=== PATIENT | female | born 2000 | race Caucasian/White ===

== ENCOUNTER 2018-08-20 16:54 | Emergency (ER) | payer OTHER ==
[2018-08-20 17:18] VITALS: BP 135/73
--- NOTE | 2018-08-20 17:19 | UC ---
Skin Complaint HPI - HPI Summary HPI Summary: 2 small circular rash on left arm for past 2 days, denies itching/pain. - History of Current Complaint Chief Complaint: UCSkin Stated Complaint: L ARM SKIN CONCERN Hx Obtained From: Patient Hx Last Menstrual Period: 07/22/18 Onset/Duration: Gradual Onset, Lasting Days Timing: Constant Pain Intensity: 0 - Allergy/Home Medications Allergies/Adverse Reactions: Allergies Allergy/AdvReac Type Severity Reaction Status Date / Time No Known Allergies Allergy Verified 08/20/18 17:18 PMH/Surg Hx/FS Hx/Imm Hx Previously Healthy: Yes - Surgical History Surgical History: Yes Surgery Procedure, Year, and Place: jaw surgery - Family History Known Family History: Positive: Hypertension - Social History Alcohol Use: None Substance Use Type: None Smoking Status (MU): Never Smoked Tobacco Review of Systems All Other Systems Reviewed And Are Negative: Yes Skin: Positive: Rash Is Patient Immunocompromised?: No Physical Exam Triage Information Reviewed: Yes Appearance: Well-Appearing, No Pain Distress, Well-Nourished Vital Signs: Initial Vital Signs Temp 98.9 F 08/20/18 17:16 Pulse 87 08/20/18 17:16 Resp 16 08/20/18 17:16 BP 135/73 08/20/18 17:16 Pulse Ox 100 08/20/18 17:16 Vital Signs Reviewed: Yes Eye Exam: Normal ENT Exam: Normal Dental Exam: Normal Respiratory Exam: Normal Cardiovascular Exam: Normal Abdominal Exam: Normal Bowel Sounds: Positive: Present Musculoskeletal Exam: Normal Neurological Exam: Normal Psychological Exam: Normal Skin: Positive: Rashes - 2 round areas of erythema with scaling Course/Dx - Course Course Of Treatment: hx obtained, exam performed ,meds reviewed, - Diagnoses Provider Diagnosis: Tinea corporis Discharge - Sign-Out/Discharge Documenting (check all that apply): Patient Departure All imaging exams completed and their final reports reviewed: No Studies - Discharge Plan Condition: Stable Disposition: HOME Prescriptions: Ketoconazole 2 % CREAM (NF) [Nizoral 2% CREAM (NF)] 1 applic TOPICAL BID #1 tube Patient Education Materials: Tinea Corporis (ED) Referrals: Tavon Odonnell MD [Primary Care Provider] - Additional Instructions: 1. use the medication as prescribed. 2. COntinue for 2-3 weeks 3. Follow up if not improving in that time. - Billing Disposition and Condition Condition: STABLE Disposition: Home
== END 2018-08-20 17:25 | disposition home or self-care (01) ==
LOC: UCCORT 16:54
DX: B35.4 Tinea corporis (principal)
CPT/HCPCS: 99212; G0463